=== PATIENT | female | born 1960 | race American Indian/Alaskan Native ===

== ENCOUNTER 2020-10-19 09:18 | Outpatient (CLI) | payer OTHER, MEDICAID ==
[2020-10-19 09:36] LABS: BASOPHILS # (AUTO) 0.1 10^3/uL (0.0-0.1); BASOPHILS % (AUTO) 1.8 %; EOSINOPHILS # (AUTO) 0.2 10^3/uL (0.0-0.7); EOSINOPHILS % (AUTO) 3.2 %; HCT - HEMATOCRIT 33.6 % (37.0-47.0); HGB - HEMOGLOBIN 10.7 g/dL (12.0-16.0); LYMPHOCYTES # (AUTO) 0.9 10^3/uL (1.5-3.5); LYMPHOCYTES % (AUTO) 17.4 %; MEAN CORPUSCULAR HGB CONC 31.8 g/dL (32.0-36.0); MEAN CORPUSCULAR VOLUME 113.1 fL (81.0-99.0); MEAN PLATELET VOLUME 8.7 fL (7.9-10.8); MONOCYTES # (AUTO) 0.9 10^3/uL (0.0-1.0); MONOCYTES % (AUTO) 17.2 %; NEUTROPHILS % (AUTO) 59.8 %; PLT - PLATELET COUNT 370 10^3/uL (130-450); RED BLOOD COUNT 2.97 10^6/uL (4.20-5.40); RED CELL DISTRIBUTION WIDTH 15.9 % (12.0-15.0)
[2020-10-19 09:50] LABS: ALBUMIN 3.2 g/dL (3.2-5.5); ALBUMIN/GLOBULIN RATIO 1.2 (1.0-2.2); ALKALINE PHOSPHATASE 198 IU/L (42-121); ALT ALANINE AMINOTRANSFERASE 21 IU/L (10-60); AST ASPARTATE AMINOTRANSFERASE 39 IU/L (10-42); BILIRUBIN,TOTAL 1.5 mg/dL (0.2-1.0); BUN - BLOOD UREA NITROGEN < 5 mg/dL (6-20); CALCIUM 8.7 mg/dL (8.5-10.3); CARBON DIOXIDE - CO2 29 mmol/L (21-32); CHLORIDE 97 mmol/L (101-111); CREATININE 0.5 mg/dL (0.4-1.0); GFR - MDRD 125 (>89); GLUCOSE 125 mg/dL (70-100); POTASSIUM 3.3 mmol/L (3.5-5.0); SODIUM 135 mmol/L (135-145); TOTAL PROTEIN 5.9 g/dL (6.7-8.2)
[2020-10-19 10:03] LABS: PLATELET ESTIMATE, MANUAL NORMAL (130-450,000) (NORMAL); PLATELET MORPHOLOGY Y (NORMAL); RBC MORPHOLOGY (MULTIPLE) 2+ MACROCYTOSIS (NORMAL); SLIDE REVIEW? Indicated
== END 2020-10-19 09:19 | disposition home or self-care (01) ==
LOC: LAB 09:18
PROVIDERS: ATTEND Internal Medicine
DX: Z79.899 Other long term (current) drug therapy (principal)
CPT/HCPCS: 36415; 80053; 85025

== ENCOUNTER 2020-10-23 10:44 | Outpatient (CLI) | payer OTHER, MEDICAID ==
--- NOTE | 2020-10-23 12:38 | CT Report ---
PROCEDURE: LUMBAR SPINE WO INDICATIONS: ACUTE BACK PAIN TECHNIQUE: Noncontrast 3 mm thick sections acquired from the T12 level to the sacrum. Sagittal and coronal refo rmats were constructed. For radiation dose reduction, the following was used: automated exposure co ntrol, adjustment of mA and/or kV according to patient size. COMPARISON: None. FINDINGS: Image quality: Excellent. Bones: Subacute appearing fractures can be seen involving the anterosuperior aspects of the L3, L4, and L5 vertebral bodies. More chronic appearing central compression deformities are seen at these lev els, with approximately 20% loss of height centrally at L3, 30-40% loss of height centrally at L4, an d approximately 30% loss of height anteriorly at L5. No suspicious lytic or blastic bony lesions. Central spinal caliber is of normal overall caliber. N o pars defects. Mild levoconvex scoliotic curvature is seen. There is minimal retrolisthesis at L1-L2 and L2-L3 and L5-S1. T12-L1: Normal in appearance. L1-L2: Normal in appearance. L2-L3: The disc height is well-preserved. Mild disc bulge is seen. No significant neural foraminal or central canal narrowing can be seen. L3-L4: The disc height is well-preserved. Mild disc bulge is seen. Mild facet hypertrophy is see n. No significant neuroforaminal narrowing can be seen. Mild central canal narrowing is seen. L4-L5: The disc height is well-preserved. Mild disc bulge is seen. Moderate facet hypertrophy is seen. There is mild right-sided and at least moderate left-sided neuroforaminal narrowing seen. Min imal central canal narrowing is seen. L5-S1: Moderate loss of disc height is seen. Endplate irregularity and sclerosis can be seen. Va cuum disc phenomenon is seen at this level. Moderate disc bulge is seen, which is eccentric to the r ight. Partially bridging endplate osteophytes are seen on the right side. There is moderate bilateral neuroforaminal narrowing seen. Minimal central canal narrowing is seen. Soft tissues: No retroperitoneal masses or hematomas. Visualized aorta is normal in caliber. The u rinary bladder is prominent at the time of this study. A normal appendix is incidentally noted. IMPRESSION: Subacute appearing fractures can be seen involving the anterosuperior aspects of L3, L4, and L5. More chronic appearing compression deformities are also seen involving these levels. Degenerative changes are seen throughout, which are worst at the L5-S1 level. Reviewed by: Gil Winkler MD on 10/23/2020 11:37 AM [place] Approved by: Gil Winkler MD on 10/23/2020 11:37 AM [place] Station ID: [id number]
== END 2020-10-23 10:45 | disposition home or self-care (01) ==
LOC: DI 10:44
PROVIDERS: ATTEND Internal Medicine
DX: M43.16 Spondylolisthesis, lumbar region (principal); M43.17 Spondylolisthesis, lumbosacral region; M47.816 Spondylosis without myelopathy or radiculopathy, lumbar region; M48.061 Spinal stenosis, lumbar region without neurogenic claudication; M51.37 Other intervertebral disc degeneration, lumbosacral region; M48.07 Spinal stenosis, lumbosacral region

== ENCOUNTER 2021-08-16 10:56 | Outpatient (CLI) | payer OTHER, MEDICAID ==
--- NOTE | 2021-08-17 13:45 | Mammography Report ---
BILATERAL DIGITAL SCREENING MAMMOGRAM 3D/2D: 08/16/2021 CLINICAL: Routine screening. Personal history of right breast cancer. Comparison is made to exams dated: 08/04/2019 mammogram, 07/09/2018 mammogram, 11/27/2017 mammogram, 06/2017 mammogram, 05/02/2016 mammogram - [facility], and 08/22/2015 speci men - [facility]. The tissue of both breasts is predominantly fatty. No significant masses, calcifications, or other findings are seen in either breast. There has been no significant interval change. IMPRESSION: NEGATIVE There is no mammographic evidence of malignancy. A 1 year screening mammogram is recommended. This exam was interpreted at Station ID: [id number]. NOTE: For mammograms, a report in lay terms will be sent to the patient. Approximately 15% of breast malignancies will not be visualized mammographically. In the management of a palpable breast mass, a negative mammogram must not discourage biopsy of a clinically suspicious lesion. Electronically Signed By: Wiley Renee M.D., jr/mateo:08/16/2021 12:03:50 ACR BI-RADS Category 1: Negative 3341F PARENCHYMAL PATTERN: (F) - The breast(s) demonstrate(s) diffuse fatty replacement. BI-RADS CATEGORY: (1) - 1 RECOMMENDATION: (ANNUAL) - Recommend routine annual screening mammography. [id number] 1 year screening LATERALITY: (B)
== END 2021-08-16 10:57 | disposition home or self-care (01) ==
LOC: DI 10:56
DX: Z12.31 Encounter for screening mammogram for malignant neoplasm of breast (principal); Z85.3 Personal history of malignant neoplasm of breast

== ENCOUNTER 2021-12-25 17:46 | Outpatient (CLI) | payer OTHER, MEDICAID | END 2021-12-25 17:47 | disposition EMS.NT | LOC: EMS 17:46 | DX: M79.642 Pain in left hand (principal); F41.9 Anxiety disorder, unspecified; V43.52XA Car driver injured in collision with other type car in traffic accident, initial encounter; Y92.413 State road as the place of occurrence of the external cause ==

== ENCOUNTER 2022-09-05 11:15 | Outpatient (CLI) | payer OTHER, MEDICAID ==
--- NOTE | 2022-09-06 08:25 | Mammography Report ---
BILATERAL DIGITAL SCREENING MAMMOGRAM 3D/2D: 09/05/2022 CLINICAL: Routine screening. Personal history of right breast cancer. Comparison is made to exams dated: 08/16/2021 mammogram - [facility], 08/04/2019 mamm ogram, 07/09/2018 mammogram, 11/27/2017 mammogram, 05/09/2017 mammogram, and 05/02/2016 mammogram - [facility]. There are scattered areas of fibroglandular density in both breasts (category b / 25%-50% glandular t issue). There are benign vascular calcifications in both breasts. There also are benign post operative findi ngs and biopsy clip in the right breast. No significant masses, calcifications, or other findings are seen in either breast. There has been no significant interval change. IMPRESSION: BENIGN There is no mammographic evidence of malignancy. A 1 year screening mammogram is recommended. This exam was interpreted at Station ID: [id number]. NOTE: For mammograms, a report in lay terms will be sent to the patient. Approximately 15% of breast malignancies will not be visualized mammographically. In the management of a palpable breast mass, a negative mammogram must not discourage biopsy of a clinically suspicious lesion. Electronically Signed By: Melisa mercado/mateo:09/05/2022 13:41:25 ACR BI-RADS Category 2: Benign Finding(s) 3342F PARENCHYMAL PATTERN: (A) - The breast(s) demonstrate(s) scattered fibroglandular densities. BI-RADS CATEGORY: (2) - 2 RECOMMENDATION: (ANNUAL) - Recommend routine annual screening mammography. [id number] 1 year screening LATERALITY: (B)
== END 2022-09-05 11:16 | disposition home or self-care (01) ==
LOC: DI 11:15
DX: Z12.31 Encounter for screening mammogram for malignant neoplasm of breast (principal); Z85.3 Personal history of malignant neoplasm of breast

== ENCOUNTER 2022-10-01 14:26 | Outpatient (CLI) | payer OTHER, MEDICAID ==
--- NOTE | 2022-10-01 16:33 | DEXA Report ---
PROCEDURE: Dexa Spine and/or Hip INDICATIONS: LUMBAR FRACTURE TECHNIQUE: Dual energy x-ray absorptiometry (DXA) was performed on a [employer] System. Regions measur ed are the AP Spine, femoral neck, and if needed forearm. COMPARISON: None. FINDINGS: Lumbar Spine: Bone Mineral Density 0.965 g/cm/cm,T score -1.8, osteopenia Left Femoral Neck: Bone Mineral Density 0.767 g/cm/cm, T score -2.0, osteopenia Left Hip: Bone Mineral Density 0.730 g/cm/cm,T score -2.2, Osteopenia (T score greater or equal to -1.0: NORMAL) (T score from -1.1 to -2.4: OSTEOPENIA) (T score less than or equal to -2.5 to: OSTEOPOROSIS) Impression: 1. Osteopenia elevates the patient's 10 year fracture risk. Patients with diagnosis of osteoporosis or osteopenia should have regular bone mineral density assess ment. For those eligible for Medicare, routine testing is allowed once every 2 years. Testing frequ ency can be increased for patients who have rapidly progressing disease or for those who are receivin g medical therapy to restore bone mass. Reviewed by: Melisa Hawthorne MD on 10/01/2022 4:32 PM PST Approved by: Melisa Hawthorne MD on 10/01/2022 4:32 PM PST Station ID: [id number]
== END 2022-10-01 14:27 | disposition home or self-care (01) ==
LOC: DI 14:26
PROVIDERS: ATTEND Nurse Practitioner
DX: S32.030A Wedge compression fracture of third lumbar vertebra, initial encounter for closed fracture (principal); M85.89 Other specified disorders of bone density and structure, multiple sites

== ENCOUNTER 2023-10-08 10:23 | Outpatient (CLI) | payer MEDICARE ==
--- NOTE | 2023-10-09 09:41 | Mammography Report ---
BILATERAL DIGITAL SCREENING MAMMOGRAM 3D/2D WITH EXAGGERATED CC: 10/08/2023 CLINICAL: Routine screening. Personal history of right breast cancer. Comparison is made to exams dated: 09/05/2022 mammogram, 08/16/2021 mammogram - [facility], 08/04/2019 mammogram, 07/09/2018 mammogram, 11/27/2017 mammogram, and [facility] There are scattered areas of fibroglandular density in both breasts (category b / 25%-50% glandular t issue). There are benign post operative findings and biopsy clip in the right breast. No significant masses, calcifications, or other findings are seen in either breast. There has been no significant interval change. IMPRESSION: BENIGN There is no mammographic evidence of malignancy. A 1 year screening mammogram is recommended. This exam was interpreted at Station ID: [id number]. NOTE: For mammograms, a report in lay terms will be sent to the patient. Approximately 15% of breast malignancies will not be visualized mammographically. In the management of a palpable breast mass, a negative mammogram must not discourage biopsy of a clinically suspicious lesion. Electronically Signed By: Kerry Vazquez M.D., PH.D eb/penrad:10/08/2023 16:00:10 letter sent: No_Letter ACR BI-RADS Category 2: Benign Finding(s) 3342F PARENCHYMAL PATTERN: (A) - The breast(s) demonstrate(s) scattered fibroglandular densities. BI-RADS CATEGORY: (2) - 2 RECOMMENDATION: (ANNUAL) - Recommend routine annual screening mammography. [id number] 1 year screening LATERALITY: (B)
== END 2023-10-08 10:24 | disposition home or self-care (01) ==
LOC: DI 10:23
PROVIDERS: ATTEND Registered Nurse
DX: Z12.31 Encounter for screening mammogram for malignant neoplasm of breast (principal)

== ENCOUNTER 2023-12-26 08:00 | Outpatient (CLI) | payer MEDICARE | END 2023-12-26 23:59 | disposition home or self-care (01) | LOC: LAB.N 08:00 | PROVIDERS: ATTEND Registered Nurse | DX: R31.9 Hematuria, unspecified (principal); R30.0 Dysuria; R23.8 Other skin changes | CPT/HCPCS: 87086 ==

== ENCOUNTER 2024-01-01 11:39 | Outpatient (CLI) | payer MEDICARE ==
[2024-01-01 12:02] LABS: BASOPHILS # (AUTO) 0.1 10^3/uL (0.0-0.1); BASOPHILS % (AUTO) 1.7 %; EOSINOPHILS # (AUTO) 0.1 10^3/uL (0.0-0.7); EOSINOPHILS % (AUTO) 2.3 %; HCT - HEMATOCRIT 37.2 % (37.0-47.0); LYMPHOCYTES # (AUTO) 1.1 10^3/uL (1.5-3.5); LYMPHOCYTES % (AUTO) 31.1 %; MEAN CORPUSCULAR HEMOGLOBIN 37.2 pg (27.0-31.0); MEAN CORPUSCULAR HGB CONC 34.9 g/dL (32.0-36.0); MEAN CORPUSCULAR VOLUME 106.6 fL (81.0-99.0); MEAN PLATELET VOLUME 8.7 fL (7.9-10.8); MONOCYTES # (AUTO) 0.6 10^3/uL (0.0-1.0); MONOCYTES % (AUTO) 15.7 %; NEUTROPHILS # (AUTO) 1.7 10^3/uL (1.5-6.6); NEUTROPHILS % (AUTO) 48.9 %; PLT - PLATELET COUNT 128 10^3/uL (130-450); RED BLOOD COUNT 3.49 10^6/uL (4.20-5.40); RED CELL DISTRIBUTION WIDTH 15.4 % (12.0-15.0); WHITE BLOOD COUNT 3.5 x10^3/uL (4.8-10.8)
[2024-01-01 12:31] LABS: ALBUMIN 3.3 g/dL (3.2-5.5); ALBUMIN/GLOBULIN RATIO 1.1 (1.0-2.2); ALKALINE PHOSPHATASE 151 IU/L (42-121); ALT ALANINE AMINOTRANSFERASE 30 IU/L (10-60); AST ASPARTATE AMINOTRANSFERASE 87 IU/L (10-42); BILIRUBIN,TOTAL 1.4 mg/dL (0.2-1.0); BUN - BLOOD UREA NITROGEN 2 mg/dL (6-20); CARBON DIOXIDE - CO2 30 mmol/L (21-32); CHLORIDE 101 mmol/L (101-111); CREATININE 0.4 mg/dL (0.6-1.3); CRP - C-REACTIVE PROTEIN < 0.5 mg/dL (<0.5); GFR - MDRD 160 (>89); GLUCOSE 111 mg/dL (74-104); POTASSIUM 3.7 mmol/L (3.5-4.5); SODIUM 138 mmol/L (135-145); TOTAL PROTEIN 6.4 g/dL (6.4-8.9)
[2024-01-01 12:47] LABS: THYROID STIMULATING HORMONE 4.64 uIU/mL (0.34-5.60)
== END 2024-01-01 11:40 | disposition home or self-care (01) ==
LOC: LAB 11:39
PROVIDERS: ATTEND Registered Nurse
DX: R23.8 Other skin changes (principal); R31.9 Hematuria, unspecified; R30.0 Dysuria
CPT/HCPCS: 36415; 80053; 84443; 85025; 85651; 86140

== ENCOUNTER 2024-01-02 08:00 | Outpatient (CLI) | payer MEDICARE ==
[2024-01-02 22:03] LABS: BACTERIAL VAGINOSIS DNA NEGATIVE (NEGATIVE); CANDIDA GLABRATA DNA NEGATIVE (NEGATIVE); CANDIDA GROUP DNA NEGATIVE (NEGATIVE); CANDIDA KRUSEI DNA NEGATIVE (NEGATIVE); TRICHOMONAS VAGINALIS DNA NEGATIVE (NEGATIVE)
== END 2024-01-02 23:59 | disposition home or self-care (01) ==
LOC: LAB.N 08:00
PROVIDERS: ATTEND Registered Nurse
DX: N89.8 Other specified noninflammatory disorders of vagina (principal); N30.90 Cystitis, unspecified without hematuria
CPT/HCPCS: 81514

== ENCOUNTER 2024-01-20 14:35 | Outpatient (CLI) | payer MEDICARE ==
--- NOTE | 2024-01-21 07:56 | Ultrasound Report ---
PROCEDURE: Pelvic w/Transvaginal INDICATIONS: VAGINAL MASS, CYSTITIS TECHNIQUE: Real-time scanning was performed of the pelvic organs, with image documentation. Additional endovagi nal scanning was necessary due to incomplete visualization of the adnexal and endometrial structures by transabdominal scanning. COMPARISON: None. FINDINGS: Uterus: Uterus is anteverted and normal in size at 7.3 x 2.4 x 3.7 cm. The myometrium is heterogene ous. The endometrium measures 5.0 mm in combined thickness. No vaginal mass is identified on ultras ound. Ovaries: Ovaries are not visualized Other: No pathologic free abdominal or pelvic fluid. IMPRESSION: 1. No additional mass is identified on ultrasound. Please correlate with findings on physical diagnos is. If clinically indicated, further imaging with gynecological MRI may be performed. 2. Endometrium is borderline in thickness for a postmenopausal woman. Consider follow-up imaging as c linically indicated. 3. Ovaries are not visualized on ultrasound. 4. No pathological free fluid in pelvis. Reviewed by: Ranjith Rodriguez MD on 01/21/2024 7:55 AM PDT Approved by: Ranjith Rodriguez MD on 01/21/2024 7:55 AM PDT Station ID: [id number]
== END 2024-01-20 14:36 | disposition home or self-care (01) ==
LOC: DI 14:35
PROVIDERS: ATTEND Registered Nurse
DX: R93.89 Abnormal findings on diagnostic imaging of other specified body structures (principal); N30.90 Cystitis, unspecified without hematuria